=== PATIENT | male | born 1990 | race Caucasian/White ===

== ENCOUNTER 2019-03-23 07:56 | Emergency (ER) | payer OTHER ==
[2019-03-23 09:08] LABS: URINE BLOOD (Dip) POC 3+ (NEGATIVE); URINE GLUCOSE (Dip) POC Negative (NEGATIVE); URINE KETONES (Dip) POC Negative (NEGATIVE); URINE LEUKOCYTE EST (Dip) POC Negative (NEGATIVE); URINE NITRITE (Dip) POC Negative (NEGATIVE); URINE TOTAL PROTEIN POC Trace (NEGATIVE)
[2019-03-23 09:08] LABS: URINE PH (Dip) POC 5.5 (5.0-8.5)
== END 2019-03-23 11:51 | disposition home or self-care (01) ==
LOC: FTE 07:56
DX: N20.0 Calculus of kidney (principal)
CPT/HCPCS: 74176; 81003; 81025; 99284-25